=== PATIENT | female | born 1990 | race Caucasian/White ===

== ENCOUNTER → 2022-11-30 14:24 | Outpatient (CLI) | payer SELFPAY ==
[2022-11-30 20:35] LABS: Bacteria Urine Few (2-10); Culture Indicated Urine Cult Not Indicated; RBC Urine 0-1/HPF (0-5/HPF); Squamous Epithelial Cell Urine 5-10 /HPF (0-5/HPF); WBC Urine 0-1/HPF (0-5/HPF)
[2022-11-30 22:30] LABS: Urine N gonorrhoeae NOT DETECTED
[2022-11-30 22:41] LABS: Urine Chlamydia NOT DETECTED
== END ==
PROVIDERS: PCP Physician Assistant Medical; Visit Provider Physician Assistant Medical
DX: N34.2 Other urethritis (principal)
CPT/HCPCS: 81015; 87077; 87086; 87186; 87491; 87591

== ENCOUNTER → 2022-12-14 12:40 | Outpatient (CLI) | payer SELFPAY | PROVIDERS: PCP Physician Assistant Medical; Visit Provider Physician Assistant Medical | DX: R30.0 Dysuria (principal) | CPT/HCPCS: 87086 ==

== ENCOUNTER → 2023-05-02 14:30 | Outpatient (CLI) | payer OTHER, SELFPAY | PROVIDERS: PCP Physician Assistant Medical; Visit Provider Nurse Practitioner Adult Health | DX: Z12.4 Encounter for screening for malignant neoplasm of cervix (principal); Z01.419 Encounter for gynecological examination (general) (routine) without abnormal findings | CPT/HCPCS: 87491; 87591; 87661 ==